=== PATIENT | male | born 2005 | race Caucasian/White ===

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

== ENCOUNTER 2024-01-13 13:24 | Emergency (ER) | payer OTHER ==
[~2024-01-13] VITALS: Ht 185.4 cm; Wt 122.7 kg
[~2024-01-13 13:24] MED LIST changes: +ALBU18HF12 IH; -ALBU8HFA IH
[2024-01-13 13:33] VITALS: TEMP 97.9
[2024-01-13] MEDS ORDERED: IBUPROFEN 600 MG TABLET PO ONE (15:15)
[2024-01-13] MEDS: KETOROLAC TROMETHAMINE 30 MG/ML VIAL IM ONE (16:05)
[2024-01-13] MEDS: LIDOCAINE 5% TRANSDERMAL PATCH TD ONE (16:05)
[2024-01-13 16:48] VITALS: BP 132/81; PULSE 79; RESP 18
== END 2024-01-13 16:55 | disposition home or self-care (01) ==
LOC: EMS 13:24
DX: M79.605 Pain in left leg (principal); R07.81 Pleurodynia; J45.909 Unspecified asthma, uncomplicated; V29.888A Rider (driver) (passenger) of other motorcycle injured in other specified transport accidents, initial encounter; Y93.89 Activity, other specified; Y92.89 Other specified places as the place of occurrence of the external cause; Y99.8 Other external cause status
CPT/HCPCS: 99283; 71101; 96372; J1885